=== PATIENT | female | born 1965 | race African-American/Black ===

== ENCOUNTER 2023-11-06 10:21 | Outpatient (CLI) | payer BC | END 2023-11-06 10:22 | disposition home or self-care (01) | LOC: CSHULT 10:21 | PROVIDERS: ATTEND Student in an Organized Health Care Education/Training Program | DX: R13.10 Dysphagia, unspecified (principal); M19.09 Primary osteoarthritis, other specified site | CPT/HCPCS: 76536 ==

== ENCOUNTER 2024-03-30 16:18 | Outpatient (CLI) | payer BC | END 2024-03-30 16:19 | disposition home or self-care (01) | LOC: CSHRAD 16:18 | PROVIDERS: ATTEND Student in an Organized Health Care Education/Training Program | DX: R07.89 Other chest pain (principal) | CPT/HCPCS: 71046 ==